=== PATIENT | male | born 1945 | race Caucasian/White ===

== ENCOUNTER 2025-02-22 06:28 | Day surgery (SDC) | payer OTHER ==
[~2025-02-22] VITALS: Ht 162.6 cm; Wt 49.4 kg
[2025-02-22] VITALS (11 sets, daily range): BP systolic 104–121; BP diastolic 60–77; PULSE 60–67; RESP 15–18; TEMP 97.1–97.9
[2025-02-22] MEDS: 0.9%NACL 1000ML 1,000 ML IV ONE (08:35)
[2025-02-22] MEDS ORDERED: ATOR40TA71 PO (08:37)
[2025-02-22] MEDS ORDERED: ESOM40CA66 PO (08:37)
[2025-02-22] MEDS ORDERED: LIDOCAINE HCL 1% 20 ML VIAL ONE (09:14)
--- NOTE | 2025-02-22 10:40 | NUR ---
BOTH PT AND FRIEND GIVEN VERBAL AND WRITTEN DISCHARGE INSTRUCTIONS IV REMOVED SITE ASYMPTOMATIC. PT TAKEN OUT VIA WHEELCHAIR FRIEND DRIVING
== END 2025-02-22 10:35 | disposition home or self-care (01) ==
LOC: DAH 06:28
PROVIDERS: ATTEND Internal Medicine Gastroenterology
DX: R13.10 Dysphagia, unspecified (principal); K22.2 Esophageal obstruction; K31.89 Other diseases of stomach and duodenum; K29.50 Unspecified chronic gastritis without bleeding; K44.9 Diaphragmatic hernia without obstruction or gangrene; R93.3 Abnormal findings on diagnostic imaging of other parts of digestive tract; C67.9 Malignant neoplasm of bladder, unspecified; K22.89 Other specified disease of esophagus; K21.9 Gastro-esophageal reflux disease without esophagitis; Z90.49 Acquired absence of other specified parts of digestive tract; Z98.890 Other specified postprocedural states; Z79.899 Other long term (current) drug therapy
CPT/HCPCS: 43249; 43239; J7030 ×2; J2704; A4620; A4215; A4223; A7002; A4222; A4221; A4663; A4606; C1726; J3490

== ENCOUNTER 2025-02-28 06:47 | Inpatient (IN) | payer OTHER ==
[~2025-02-28] VITALS: Ht 162.6 cm; Wt 46.6 kg
[2025-02-28] VITALS (20 sets, daily range): BP systolic 80–138; BP diastolic 65–96; PULSE 71–89; RESP 13–19; TEMP 97.7–98.4; O2SAT 96
[~2025-02-28 06:47] MED LIST: ATOR40TA71 PO
[2025-02-28] MEDS ORDERED: CYAN-35 PO (10:12)
[2025-02-28] MEDS ORDERED: FERS325 PO (10:12)
[2025-02-28] MEDS: 0.9%NACL 1000ML 1,000 ML IV ONE (10:30)
[2025-02-28] MEDS ORDERED: SUCCINYLCHOLINE CHLORIDE 20 MG/ML 10 ML VIAL ONE (11:29)
[2025-02-28] MEDS ORDERED: LIDOCAINE PF 100MG/5ML (2%) SYRINGE 5ML ONE (11:30)
--- NOTE | 2025-02-28 12:50 | NUR ---
RECEIVED PT IN ROOM 429. PT IS ALERT AND ORIENTED. NO SIGNS OF DISCOMFORT OR DISTRESS. PT WAS ABLE TO ASSIST WITH TRANSFER TO BED. CARE ONGOING.
[2025-02-28] MEDS: cefTRIAXone 1G VIAL 1 GM ONE (12:53)
[2025-02-28] MEDS ORDERED: DOCU100C33 PO (13:13)
[2025-02-28] MEDS: SUCRALFATE 1 GM/10 ML PO ONE (20:01)
[2025-02-28] MEDS: SUCRALFATE 1 GM/10 ML PO SCH (21:19)
[2025-02-28] MEDS: LACTATED RINGERS 1000ML 1,000 ML IV SCH (22:09)
[2025-03-01] VITALS (7 sets, daily range): BP systolic 117–145; BP diastolic 70–86; PULSE 81–93; RESP 16–20; TEMP 97.9–98.6; O2SAT 94–95
--- NOTE | 2025-03-01 01:30 | NUR ---
nurse note patient alert and oriented times 3. plan of care discussed with him and his sister dameon. they verbalized understanding. He has been vomitting everything he swallows including his carafate. His emesis is clear brown/yellow in color. I paged Brendon Daniel np and he ordered zofran and LR at 75 ml/hr. The patient has been trying to sleep and has slept about 3 hours tonight. He calls for assistance to the restroom. He had a large bowel movement (brown) on the toilet last night 02/29/24. Door open, call light within reach, bed alarm on, 2 side rails up. will continue to monitor patient.
[2025-03-01 04:43] LABS: IMMATURE GRANULOCYTE ABSOLUTE 0.04 K/uL (0-1); NUCLEATED RED BLOOD CELLS 0.0 % (0.0-0.19); PLATELET COUNT (AUTO) 225 K/uL (130-400); RED BLOOD CELL COUNT(AUTO) 3.79 MIL/uL (4.50-6.20); RED CELL DISTRIBUTION WIDTH 13.8 % (11.0-15.5); WHITE BLOOD COUNT (AUTO) 9.6 K/uL (4.8-10.8)
[2025-03-01 05:12] LABS: ASPARTATE AMINOTRANSFERASE 29.0 U/L (10-37); CREATININE 1.0 mg/dL (0.5-1.3); GLOMERULAR FILTR. RATE CALC 76.0 mL/min (>90); GLUCOSE,RANDOM 141.0 mg/dL (70-105); SODIUM SERUM 143.0 mmol/L (136-145); TOTAL PROTEIN, SERUM 6.9 g/dL (6.0-8.3); UREA NITROGEN, BLOOD 24.0 mg/dL (7-18)
--- NOTE | 2025-03-01 06:39 | CONS ---
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 One exam, patient is awake, alert, and oriented x 3. No acute distress noted. BBS are clear. Abdomen soft and not distended. Active bs are present. He reports epigastric discomfort and having dry heaves. Denies having any emesis. POC discussed. Will reevaluate in am. He verbalized understanding and agreement. ] Review of Systems: CONSTITUTIONAL: No malaise or change in sensation of wellbeing. ENMT: No rhinorrhea, otorrhea, sinus pain, ear ache. CARDIOVASCULAR: No angina, palpitations, orthopnea or paroxysmal dyspnea. RESPIRATORY: No SOB. GASTROINTESTINAL: No abdominal pain, nausea, vomiting, diarrhea, hematemesis, melena or change in the patient's habitual bowel movements consistency/number. GENITOURINARY: No dysuria, hematuria or change in bladder continence. MUSCULOSKELETAL: No new muscle pain or decrease in muscular strength. No new joint swelling, redness or tenderness. SKIN: No new rash. Past Medical History: [Esophageal stricture, GERD, Hiatal hernia, Salazar's esophagus without dy splasia. ] Past Surgical History: Thumb surgery , Laparoscopy bladder diverticulectomy , Hernia repair 08/16/24] Past Social History: [ ] Family History: [patient denies any family hx of GI malignancy. ] Coded Allergies: No Known Drug Allergies (Unverified Allergy, Unknown, 02/22/25) Physical Exam: GEN: Awake, alert, oriented in person, time and place, and in no acute distress. HEENT: No rhinorrhea. Oral mucosa is pink, moist and within normal limits. CHEST: Lung auscultation revealed normal breath sounds bilaterally. CARDIAC:Heart sounds are regular. ABD: Soft, non-tender and not distended. No peritoneal signs on palpation. Normal bowel sounds. EXT: No cyanosis or clubbing. No edema. SKIN: Intact. No rashes. NEURO: Alert and oriented to name, place and person.No focal motor deficits. Normal speech. Vital Sign (Last 24 Hours) 02/28/25 03/01/25 19:00 03:36 Temp 97.9 Pulse 81 Resp 18 B/P (MAP) 145/86 Pulse Ox 96 O2 Delivery Room Air O2 Flow Rate 0 FiO2 21 Intake & Output (last 24hrs) 02/28/25 02/28/25 03/01/25 15:00 23:00 07:00 Intake Total 900.0 ml Output Total 1850 ml 1000 ml Balance -1850 ml -100.0 ml Laboratory: [ ] Laboratory: Test 03/01/25 04:20 Range/Units White Blood Count 9.6 4.8-10.8 K/uL Red Blood Count 3.79 L 4.50-6.20 MIL/uL Hemoglobin 12.8 L 14.0-18.0 g/dL Hematocrit 38.4 L 42-54 % Mean Corpuscular Volume 101.3 H 79-99 fL Mean Corpuscular Hemoglobin 33.8 H 27.0-33.0 pg Mean Corpuscular Hemoglobin Concent 33.3 32.0-36.0 g/dL Red Cell Distribution Width 13.8 11.0-15.5 % Platelet Count 225 130-400 K/uL Mean Platelet Volume 10.8 H 7.5-10.5 fL Immature Granulocyte % (Auto) 0.4 0-1 % Neutrophils (%) (Auto) 92.3 H 40.0-77.0 % Lymphocytes (%) (Auto) 5.4 L 21.0-51.0 % Monocytes (%) (Auto) 1.8 L 3.0-13.0 % Eosinophils (%) (Auto) 0.0 0.0-8.0 % Basophils (%) (Auto) 0.1 0.0-5.0 % Neutrophils # (Auto) 8.8 H 1.8-7.7 K/uL Lymphocytes # (Auto) 0.5 L 1.0-4.8 K/uL Monocytes # (Auto) 0.2 0.1-1.0 K/uL Eosinophils # (Auto) 0.00 0.00-0.70 K/uL Basophils # (Auto) 0.01 0.00-0.20 K/uL Absolute Immature Granulocyte (auto 0.04 0-1 K/uL Nucleated Red Blood Cells 0.0 0.0-0.19 % White Cell Morphology Comment See comments Sodium Level 143 136-145 mmol/L Potassium Level 3.1 L 3.5-5.1 mmol/L Chloride Level 104 101-111 mmol/L Carbon Dioxide Level 19 L 21-32 mmol/L Blood Urea Nitrogen 24 H 7-18 mg/dL Creatinine 1.0 0.5-1.3 mg/dL Glomerular Filtration Rate Calc 76 >90 mL/min Random Glucose 141 H 70-105 mg/dL Total Calcium 8.8 8.5-10.1 mg/dL Total Bilirubin 0.5 0.2-1.0 mg/dL Aspartate Amino Transf (AST/SGOT) 29 10-37 U/L Alanine Aminotransferase (ALT/SGPT) 28 12-78 U/L Alkaline Phosphatase 58 50-136 U/L Total Protein 6.9 6.0-8.3 g/dL Albumin 3.6 3.5-5.0 g/dL Lipase 13 L 16-77 U/L Current Medications Medications (Trade) Dose Ordered Sig/Dany Route PRN Reason Start Time Stop Time Status Last Admin Dose Admin Lactated Ringer's 1,000 ml @ 75 mls/hr [id number] IV 02/28/25 22:30 03/30/25 22:29 02/28/25 22:09 75 MLS/HR Ondansetron HCl (zoFRAN 4MG INJ) 4 mg Q6H PRN IVP NAUSEA/VOMITING 02/28/25 22:30 03/30/25 22:29 02/28/25 22:09 4 MG Pantoprazole Sodium (PROTonix 40MG INJ) 40 mg DAILY IVP 03/01/25 09:00 03/31/25 08:59 Potassium Chloride 100 ml @ 50 mls/hr PROTOCOL IV 03/01/25 06:30 03/31/25 06:29 03/01/25 06:18 50 MLS/HR Sucralfate (Carafate) 1 gm ACHS PO 02/28/25 21:00 03/30/25 20:59 03/01/25 06:17 1 GM Diagnostics / Radiology: [COPY/PASTE HERE IF NO REPORTS PLEASE DELETE SECTION] Assessment: [Esophageal stricture s/p stent placement GERD Hyperlipidemia ] Plan: [Case discussed with Dr. Jung Full liquid diet today. Advance to soft diet in am Antiemetics prn Please call with questions, concerns and change in clinical status Appreciate hospitalist's assistance in the patient's care. ] DIO RAMSEYP Mar 01, 2025 06:39
--- NOTE | 2025-03-01 07:11 | HMCIMG ---
EXAM: CR Chest, 1 views. CLINICAL HISTORY: Cough. COMPARISON: None provided. FINDINGS: Radio-opaque stent is seen in lower chest likely esophageal stent. the lungs show no infiltrate or other acute findings. No pleural effusion or pneumothorax. The cardiomediastinal silhouette is within normal limits. No acute osseous abnormality. IMPRESSION: No acute cardiopulmonary pathology is evident. Radio-opaque stent is seen in lower chest likely esophageal stent. /[place]
--- NOTE | 2025-03-01 10:58 | NUR ---
DCP:HOME Pt currently lives alone in his home. Pt states that he has a wheelchair at home if he ever needs it but has not used it in close to a year. Pt does not have a provider or home health services. Pt states that he is able to complete ADLs independently. PCP is Dr. Ovidio Deluna ([facility]) and also uses the [facility] for any RX needs. At OR pt will want to go home and friends can assist with transportation. Addendum: 03/01/25 at 1101 by SRIKANTH OQUENDO SS Amended: Links added.
--- NOTE | 2025-03-01 11:00 | PN ---
GASTROENTEROLOGY PROGRESS NOTE Date of Visit: Mar 01, 2025 Time of Visit: 10:57 Events / Notes: [Patient has remained hemodynamically stable and afebrile. WBC of 9.6, hemoglobin 12.8, hematocrit 38.4, platelets 225. Chemistries significant for potassium of 3.1, carbon dioxide of 19, BUN 24, glucose 141, LFTs are normal, lipase 13. Chest x-ray showing no acute cardiopulmonary pathology is evident. Radiopaque stent is seen in the lower chest likely esophageal stent. On exam patient is awake alert and oriented x3, respirations are even and unlabored. He reports having nausea and vomiting today with discomfort in chest. Explained esophageal stent probable cause of symptoms. We will give GI cocktail today and monitor progress. Patient agreed. ] Review of Systems: CONSTITUTIONAL: No malaise or change in sensation of wellbeing. ENMT: No rhinorrhea, otorrhea, sinus pain, ear ache. CARDIOVASCULAR: No angina, palpitations, orthopnea or paroxysmal dyspnea. RESPIRATORY: No SOB. GASTROINTESTINAL: No abdominal pain, nausea, vomiting, diarrhea, hematemesis, melena or change in the patient's habitual bowel movements consistency/number. GENITOURINARY: No dysuria, hematuria or change in bladder continence. MUSCULOSKELETAL: No new muscle pain or decrease in muscular strength. No new joint swelling, redness or tenderness. SKIN: No new rash. Physical Exam: GEN: Awake, alert, oriented in person, time and place, and in no acute distress. HEENT: No rhinorrhea. Oral mucosa is pink, moist and within normal limits. CHEST: Lung auscultation revealed normal breath sounds bilaterally. CARDIAC:Heart sounds are regular. ABD: Soft, non-tender and not distended. No peritoneal signs on palpation. Normal bowel sounds. EXT: No cyanosis or clubbing. No edema. SKIN: Intact. No rashes. NEURO: Alert and oriented to name, place and person.No focal motor deficits. Normal speech. Vital Signs (last 8hr) Date Time Temp Pulse Resp B/P (MAP) Pulse Ox O2 Delivery O2 Flow Rate FiO2 03/01/25 08:00 94 Room Air* 0 21 03/01/25 07:50 98.1 86 19 133/78 94 Room Air 03/01/25 03:36 97.9 81 18 145/86 96 Room Air 21 Laboratory: [ ] Laboratory: Test 03/01/25 04:20 Range/Units White Blood Count 9.6 4.8-10.8 K/uL Red Blood Count 3.79 L 4.50-6.20 MIL/uL Hemoglobin 12.8 L 14.0-18.0 g/dL Hematocrit 38.4 L 42-54 % Mean Corpuscular Volume 101.3 H 79-99 fL Mean Corpuscular Hemoglobin 33.8 H 27.0-33.0 pg Mean Corpuscular Hemoglobin Concent 33.3 32.0-36.0 g/dL Red Cell Distribution Width 13.8 11.0-15.5 % Platelet Count 225 130-400 K/uL Mean Platelet Volume 10.8 H 7.5-10.5 fL Immature Granulocyte % (Auto) 0.4 0-1 % Neutrophils (%) (Auto) 92.3 H 40.0-77.0 % Lymphocytes (%) (Auto) 5.4 L 21.0-51.0 % Monocytes (%) (Auto) 1.8 L 3.0-13.0 % Eosinophils (%) (Auto) 0.0 0.0-8.0 % Basophils (%) (Auto) 0.1 0.0-5.0 % Neutrophils # (Auto) 8.8 H 1.8-7.7 K/uL Lymphocytes # (Auto) 0.5 L 1.0-4.8 K/uL Monocytes # (Auto) 0.2 0.1-1.0 K/uL Eosinophils # (Auto) 0.00 0.00-0.70 K/uL Basophils # (Auto) 0.01 0.00-0.20 K/uL Absolute Immature Granulocyte (auto 0.04 0-1 K/uL Nucleated Red Blood Cells 0.0 0.0-0.19 % White Cell Morphology Comment See comments Sodium Level 143 136-145 mmol/L Potassium Level 3.1 L 3.5-5.1 mmol/L Chloride Level 104 101-111 mmol/L Carbon Dioxide Level 19 L 21-32 mmol/L Blood Urea Nitrogen 24 H 7-18 mg/dL Creatinine 1.0 0.5-1.3 mg/dL Glomerular Filtration Rate Calc 76 >90 mL/min Random Glucose 141 H 70-105 mg/dL Total Calcium 8.8 8.5-10.1 mg/dL Total Bilirubin 0.5 0.2-1.0 mg/dL Aspartate Amino Transf (AST/SGOT) 29 10-37 U/L Alanine Aminotransferase (ALT/SGPT) 28 12-78 U/L Alkaline Phosphatase 58 50-136 U/L Total Protein 6.9 6.0-8.3 g/dL Albumin 3.6 3.5-5.0 g/dL Lipase 13 L 16-77 U/L Current Medications Medications (Trade) Dose Ordered Sig/Dany Route PRN Reason Start Time Stop Time Status Last Admin Dose Admin Lactated Ringer's 1,000 ml @ 75 mls/hr [id number] IV 02/28/25 22:30 03/30/25 22:29 02/28/25 22:09 75 MLS/HR Ondansetron HCl (zoFRAN 4MG INJ) 4 mg Q6H PRN IVP NAUSEA/VOMITING 02/28/25 22:30 03/30/25 22:29 03/01/25 08:37 4 MG Pantoprazole Sodium (PROTonix 40MG INJ) 40 mg DAILY IVP 03/01/25 09:00 03/31/25 08:59 03/01/25 08:37 40 MG Potassium Chloride 100 ml @ 50 mls/hr PROTOCOL IV 03/01/25 06:30 03/31/25 06:29 03/01/25 06:18 50 MLS/HR Sucralfate (Carafate) 1 gm ACHS PO 02/28/25 21:00 03/30/25 20:59 03/01/25 06:17 1 GM Diagnostics / Radiology: [COPY/PASTE HERE IF NO REPORTS PLEASE DELETE SECTION] Assessment: [Esophageal stricture s/p ERCP with stent placement ] Plan: [Case discussed with Dr. Jung Clear to full liquid diet today. Antiemetics prn Please call with questions, concerns and change in clinical status Appreciate hospitalist's assistance in the patient's care. ] DIO RAMSEY Mar 01, 2025 11:00
--- NOTE | 2025-03-01 21:38 | HP ---
[facility] HISTORY AND PHYSICAL Date of Service: Mar 01, 2025 Time of Service: 21:25 HISTORY OF PRESENT ILLNESS: [The patient is an 79-year-old male with a significant history of dysphagia, Salazar's esophagus, GERD, diaphragmatic hernia, and magnet neoplasm of the bladder. He was last evaluated on 02/06 and started on sucralfate for an esophageal high-grade stricture, status post EGD and ERCP with esophageal stent placement. Since the procedure, he has experienced persistent nausea. No reports of vomiting, abdominal pain, or changes in bowel habits. No recent fevers or chills. ] REVIEW OF SYSTEMS CONSTITUTIONAL: Denies fevers, chills, or night sweats. No unintentional weight loss reported. NEUROLOGICAL: Denies headache, amaurosis fugax, motor weakness, sensory deficit, vertigo/spinning sensation, gait abnormalities, or tremors. ENT: No hearing loss, otalgia, otorrhea, rhinitis, rhinorrhea, hoarseness, or sore throat. CARDIOVASCULAR: Denies any exertional angina, dyspnea on exertion, orthopnea, paroxysmal nocturnal dyspnea, palpitations, life-threatening arrhythmias, claudication. PULMONARY: Denies any shortness of breath, cough, phlegm/sputum, hemoptysis, pleuritic chest pain. SLEEP: Denies morning headaches, daytime somnolence or napping. Denies difficulty falling asleep, staying asleep, waking from sleep. Denies knowledge of snoring. GASTROINTESTINAL: Denies any type of dysphagia to either liquids or solids. Denies nausea, vomiting, pyrosis, early satiety, abdominal pain, diarrhea, constipation, or changes in stool consistency or caliber. Denies coffee-ground emesis, hematemesis, hematochezia, or melanotic stools. GENITOURINARY: Denies frequency, urgency, nocturia, hematuria or incontinence (Storage/Irritative symptoms.) Low urinary stream, straining to void, urinary intermittency or hesitancy, splitting of the voiding stream, terminal dribbling. ENDOCRINOLOGIC: Denies polyuria, polydipsia, polyphagia or heat/cold intolerances. HEMATOLOGIC: Denies thrombophilia/previous clots, or coagulopathy/bleeding disorders. ONCOLOGIC: Denies personal history of malignancy. DERMATOLOGIC: Denies rashes or pruritus. PSYCHIATRIC: Denies any suicidal or homicidal ideation. Denies hallucinations. PAST MEDICAL HISTORY: [Dysphagia Salazar's esophagus GERD Diaphragmatic hernia Malignant neoplasm of bladder ] PAST SURGICAL HISTORY: [EGD and ERCP with esophageal stent placement times surgery, laparoscopic bladder diverticulectomy, hernia repair in 08/16/2024 ] PAST SOCIAL HISTORY: [Prior cocaine use now abstinent, denies tobacco, illicit drug use ] FAMILY HISTORY: [Patient denies any family history of GI malignancy ] Coded Allergies: No Known Drug Allergies (Unverified Allergy, Unknown, 02/22/25) PHYSICAL EXAM GENERAL APPEARANCE: The patient is awake, alert, and oriented, in no acute cardiopulmonary distress. NEUROLOGICAL: Cranial nerves II-XII grossly intact. Motor is 5/5 in bilateral upper and lower extremities proximal to distal. No sensory deficits. HEENT: Face is symmetric. Pupils are equal and reactive. Extraocular movements are intact. NECK: Supple. No JVD. No thyromegaly. No submental, submandibular, pre-/postauricular, occipital or supraclavicular lymphadenopathy. CHEST: Normal chest expansion. No Telemetry. LUNGS: Absence of any rales, rhonchi or any wheezing. CARDIOVASCULAR: Regular. S1 and S2 normal. No appreciable rubs, murmurs or gallops. ABDOMEN: Soft, nontender, and nondistended. There is no rebound, voluntary guarding, or rigidity. : Deferred. No Elizalde. EXTREMITIES: Non-edematous and not cyanotic. No clubbing. Good capillary refill. SKIN: No skin breakdown. Vital Sign (Last 24 Hours) 03/01/25 03/01/25 08:00 20:00 Temp 98.6 Pulse 81 Resp 20 B/P (MAP) 126/70 Pulse Ox 96 O2 Delivery Room Air O2 Flow Rate 0 FiO2 21 Intake & Output (last 24hrs) 02/28/25 02/28/25 03/01/25 15:00 23:00 07:00 Intake Total 900.0 ml Output Total 1850 ml 1000 ml Balance -1850 ml -100.0 ml LABS: Laboratory: Test 03/01/25 04:20 Range/Units White Blood Count 9.6 4.8-10.8 K/uL Red Blood Count 3.79 L 4.50-6.20 MIL/uL Hemoglobin 12.8 L 14.0-18.0 g/dL Hematocrit 38.4 L 42-54 % Mean Corpuscular Volume 101.3 H 79-99 fL Mean Corpuscular Hemoglobin 33.8 H 27.0-33.0 pg Mean Corpuscular Hemoglobin Concent 33.3 32.0-36.0 g/dL Red Cell Distribution Width 13.8 11.0-15.5 % Platelet Count 225 130-400 K/uL Mean Platelet Volume 10.8 H 7.5-10.5 fL Immature Granulocyte % (Auto) 0.4 0-1 % Neutrophils (%) (Auto) 92.3 H 40.0-77.0 % Lymphocytes (%) (Auto) 5.4 L 21.0-51.0 % Monocytes (%) (Auto) 1.8 L 3.0-13.0 % Eosinophils (%) (Auto) 0.0 0.0-8.0 % Basophils (%) (Auto) 0.1 0.0-5.0 % Neutrophils # (Auto) 8.8 H 1.8-7.7 K/uL Lymphocytes # (Auto) 0.5 L 1.0-4.8 K/uL Monocytes # (Auto) 0.2 0.1-1.0 K/uL Eosinophils # (Auto) 0.00 0.00-0.70 K/uL Basophils # (Auto) 0.01 0.00-0.20 K/uL Absolute Immature Granulocyte (auto 0.04 0-1 K/uL Nucleated Red Blood Cells 0.0 0.0-0.19 % White Cell Morphology Comment See comments Sodium Level 143 136-145 mmol/L Potassium Level 3.1 L 3.5-5.1 mmol/L Chloride Level 104 101-111 mmol/L Carbon Dioxide Level 19 L 21-32 mmol/L Blood Urea Nitrogen 24 H 7-18 mg/dL Creatinine 1.0 0.5-1.3 mg/dL Glomerular Filtration Rate Calc 76 >90 mL/min Random Glucose 141 H 70-105 mg/dL Total Calcium 8.8 8.5-10.1 mg/dL Total Bilirubin 0.5 0.2-1.0 mg/dL Aspartate Amino Transf (AST/SGOT) 29 10-37 U/L Alanine Aminotransferase (ALT/SGPT) 28 12-78 U/L Alkaline Phosphatase 58 50-136 U/L Total Protein 6.9 6.0-8.3 g/dL Albumin 3.6 3.5-5.0 g/dL Lipase 13 L 16-77 U/L Current Medications Medications (Trade) Dose Ordered Sig/Dany Route PRN Reason Start Time Stop Time Status Last Admin Dose Admin Lactated Ringer's 1,000 ml @ 75 mls/hr [id number] IV 02/28/25 22:30 03/30/25 22:29 02/28/25 22:09 75 MLS/HR Ondansetron HCl (zoFRAN 4MG INJ) 4 mg Q6H PRN IVP NAUSEA/VOMITING 02/28/25 22:30 03/30/25 22:29 03/01/25 16:42 4 MG Pantoprazole Sodium (PROTonix 40MG INJ) 40 mg DAILY IVP 03/01/25 09:00 03/31/25 08:59 03/01/25 08:37 40 MG Potassium Chloride 100 ml @ 50 mls/hr PROTOCOL IV 03/01/25 06:30 03/31/25 06:29 03/01/25 06:18 50 MLS/HR Sucralfate (Carafate) 1 gm ACHS PO 02/28/25 21:00 03/30/25 20:59 03/01/25 16:42 1 GM DIAGNOSTICS / RADIOLOGY: [ ] ASSESSMENT: [79-year-old male, status post EGD/ERCP with esophageal stent placement for high-grade esophageal stricture. Persistent nausea following procedure, currently hemodynamically stable. No acute abdominal pain or evidence of complication at this time. ] Post-procedural nausea and vomiting Esophageal stricture, high-grade status post EGD/ERCP with esophageal stent placement. Post-procedural nausea persistent, requiring NPO. Hypokalemia (K 3.1 mmol/L) likely due to poor PO intake and nausea. Metabolic acidosis (CO2-19 mmol/L) mild, monitor for progression. Azotemia (BUN 24 mg/dL) possibly pre-renal from decreased PO intake. Mild hyperglycemia (Glucose 141 mg/dL) monitor. Stable hematology (Hgb 12.8 g/dL, Hct 38.4%) no acute anemia. Normal lipase (13 U/L) no evidence of acute pancreatitis. PLAN: [Diet/Nutrition: Continue NPO until nausea improves; reassess daily. Fluids: Maintain IV fluids (consider NS or LR with electrolyte monitoring). Electrolyte Replacement: Replace Potassium to correct hypokalemia (IV KCl since NPO; recheck BMP after replacement). Monitor CO2 and acid-base status; repeat BMP in AM. Antiemetics: Ondansetron IV PRN for nausea. Monitoring: Vitals q4h, Strict intake/output Daily BMP, CBC while inpatient Assess for signs of stent complications (pain, vomiting blood, worsening dysphagia). Consults: GI service follow-up for stent care and nausea management recommend ations. Patient/Family Education: Updated regarding lab findings, need for potassium replacement, and supportive management. 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 Which of the following were discussed? Hospice Care - Yes / No Therapeutic options - Yes / No Advance Directives - Yes / No Other discussions - 2. Discussed with who? Patient 3. Voluntary nature of this service was explained to the patient? Yes / No 4. Amount of time spent - _21 mins 5. Reviewed by Physician? (if this service was performed by NPP) Yes / No ] ATTESTATION BY PHYSICIAN I have seen and examined the patient. I reviewed the documentation, medical decision making, and treatment plan as noted by the mid-level provider above. I agree with the findings and plan of care. Blanca Smallwood MD, [facility] Mar 01, 2025 21:38
[2025-03-02] VITALS (7 sets, daily range): BP systolic 122–146; BP diastolic 81–88; PULSE 78–84; RESP 18; TEMP 97.7–98.8; O2SAT 95
[2025-03-02 04:40] LABS: NUCLEATED RED BLOOD CELLS 0.0 % (0.0-0.19); PLATELET COUNT (AUTO) 201.0 K/uL (130-400); RED BLOOD CELL COUNT(AUTO) 3.51 MIL/uL (4.50-6.20); RED CELL DISTRIBUTION WIDTH 14.1 % (11.0-15.5); WHITE BLOOD COUNT (AUTO) 8.8 K/uL (4.8-10.8)
[2025-03-02 04:54] LABS: CREATININE 0.8 mg/dL (0.5-1.3); GLOMERULAR FILTR. RATE CALC 89.0 mL/min (>90); GLUCOSE,RANDOM 115.0 mg/dL (70-105); SODIUM SERUM 139.0 mmol/L (136-145); UREA NITROGEN, BLOOD 19.0 mg/dL (7-18)
--- NOTE | 2025-03-02 15:16 | PN ---
[facility] PROGRESS NOTE Date of Service: Mar 02, 2025 Time of Service: 15:14 SUBJECTIVE: [The patient was examined today. He reports no new complaints. No nausea, vomiting, or abdominal pain. ] REVIEW OF SYSTEMS CONSTITUTIONAL: Denies fevers, chills, or night sweats. No unintentional weight loss reported. NEUROLOGICAL: Denies headache, amaurosis fugax, motor weakness, sensory deficit, vertigo/spinning sensation, gait abnormalities, or tremors. ENT: No hearing loss, otalgia, otorrhea, rhinitis, rhinorrhea, hoarseness, or sore throat. CARDIOVASCULAR: Denies any exertional angina, dyspnea on exertion, orthopnea, paroxysmal nocturnal dyspnea, palpitations, life-threatening arrhythmias, claudication. PULMONARY: Denies any shortness of breath, cough, phlegm/sputum, hemoptysis, pleuritic chest pain. SLEEP: Denies morning headaches, daytime somnolence or napping. Denies difficulty falling asleep, staying asleep, waking from sleep. Denies knowledge of snoring. GASTROINTESTINAL: Denies any type of dysphagia to either liquids or solids. Denies nausea, vomiting, pyrosis, early satiety, abdominal pain, diarrhea, constipation, or changes in stool consistency or caliber. Denies coffee-ground emesis, hematemesis, hematochezia, or melanotic stools. GENITOURINARY: Denies frequency, urgency, nocturia, hematuria or incontinence (Storage/Irritative symptoms.) Low urinary stream, straining to void, urinary intermittency or hesitancy, splitting of the voiding stream, terminal dribbling. ENDOCRINOLOGIC: Denies polyuria, polydipsia, polyphagia or heat/cold intolerances. HEMATOLOGIC: Denies thrombophilia/previous clots, or coagulopathy/bleeding disorders. ONCOLOGIC: Denies personal history of malignancy. DERMATOLOGIC: Denies rashes or pruritus. PSYCHIATRIC: Denies any suicidal or homicidal ideation. Denies hallucinations. PHYSICAL EXAM GENERAL APPEARANCE: The patient is awake, alert, and oriented, in no acute cardiopulmonary distress. NEUROLOGICAL: Cranial nerves II-XII grossly intact. Motor is 5/5 in bilateral upper and lower extremities proximal to distal. No sensory deficits. HEENT: Face is symmetric. Pupils are equal and reactive. Extraocular movements are intact. NECK: Supple. No JVD. No thyromegaly. No submental, submandibular, pre- /postauricular, occipital or supraclavicular lymphadenopathy. CHEST: Normal chest expansion. No Telemetry. LUNGS: Absence of any rales, rhonchi or any wheezing. CARDIOVASCULAR: Regular. S1 and S2 normal. No appreciable rubs, murmurs or gallops. ABDOMEN: Soft, nontender, and nondistended. There is no rebound, voluntary guarding, or rigidity. : Deferred. No Elizalde. EXTREMITIES: Non-edematous and not cyanotic. No clubbing. Good capillary refill. SKIN: No skin breakdown. Vital Signs (last 8hr) Date Time Temp Pulse Resp B/P (MAP) Pulse Ox O2 Delivery O2 Flow Rate FiO2 03/02/25 11:55 97.9 78 18 146/86 93 Room Air 03/02/25 11:18 95 Room Air* 0 21 03/02/25 07:57 97.9 83 18 144/85 93 Room Air LABS: Laboratory: Test 03/02/25 04:08 03/01/25 04:20 Range/Units White Blood Count 8.8 4.8-10.8 K/uL Red Blood Count 3.51 L 4.50-6.20 MIL/uL Hemoglobin 11.9 L 14.0-18.0 g/dL Hematocrit 35.3 L 42-54 % Mean Corpuscular Volume 100.6 H 79-99 fL Mean Corpuscular Hemoglobin 33.9 H 27.0-33.0 pg Mean Corpuscular Hemoglobin Concent 33.7 32.0-36.0 g/dL Red Cell Distribution Width 14.1 11.0-15.5 % Platelet Count 201 130-400 K/uL Mean Platelet Volume 11.1 H 7.5-10.5 fL Nucleated Red Blood Cells 0.0 0.0-0.19 % Sodium Level 139 136-145 mmol/L Potassium Level 3.2 L 3.5-5.1 mmol/L Chloride Level 100 L 101-111 mmol/L Carbon Dioxide Level 24 21-32 mmol/L Blood Urea Nitrogen 19 H 7-18 mg/dL Creatinine 0.8 0.5-1.3 mg/dL Glomerular Filtration Rate Calc 89 >90 mL/min Random Glucose 115 H 70-105 mg/dL Total Calcium 8.2 L 8.5-10.1 mg/dL Immature Granulocyte % (Auto) 0.4 0-1 % Neutrophils (%) (Auto) 92.3 H 40.0-77.0 % Lymphocytes (%) (Auto) 5.4 L 21.0-51.0 % Monocytes (%) (Auto) 1.8 L 3.0-13.0 % Eosinophils (%) (Auto) 0.0 0.0-8.0 % Basophils (%) (Auto) 0.1 0.0-5.0 % Neutrophils # (Auto) 8.8 H 1.8-7.7 K/uL Lymphocytes # (Auto) 0.5 L 1.0-4.8 K/uL Monocytes # (Auto) 0.2 0.1-1.0 K/uL Eosinophils # (Auto) 0.00 0.00-0.70 K/uL Basophils # (Auto) 0.01 0.00-0.20 K/uL Absolute Immature Granulocyte (auto 0.04 0-1 K/uL White Cell Morphology Comment See comments Total Bilirubin 0.5 0.2-1.0 mg/dL Aspartate Amino Transf (AST/SGOT) 29 10-37 U/L Alanine Aminotransferase (ALT/SGPT) 28 12-78 U/L Alkaline Phosphatase 58 50-136 U/L Total Protein 6.9 6.0-8.3 g/dL Albumin 3.6 3.5-5.0 g/dL Lipase 13 L 16-77 U/L Current Medications Medications (Trade) Dose Ordered Sig/Dany Route PRN Reason Start Time Stop Time Status Last Admin Dose Admin Lactated Ringer's 1,000 ml @ 75 mls/hr [id number] IV 02/28/25 22:30 03/30/25 22:29 03/02/25 14:41 75 MLS/HR Ondansetron HCl (zoFRAN 4MG INJ) 4 mg Q6H PRN IVP NAUSEA/VOMITING 02/28/25 22:30 03/30/25 22:29 03/02/25 13:48 4 MG Pantoprazole Sodium (PROTonix 40MG INJ) 40 mg DAILY IVP 03/01/25 09:00 03/31/25 08:59 03/02/25 09:23 40 MG Potassium Chloride 100 ml @ 50 mls/hr PROTOCOL IV 03/01/25 06:30 03/31/25 06:29 03/02/25 05:05 50 MLS/HR Sucralfate (Carafate) 1 gm ACHS PO 02/28/25 21:00 03/30/25 20:59 03/02/25 11:57 1 GM DIAGNOSTICS / RADIOLOGY: [ ] ASSESSMENT: [79-year-old male, status post EGD/ERCP with esophageal stent placement for high-grade esophageal stricture. Persistent nausea following procedure, currently hemodynamically stable. No acute abdominal pain or evidence of complication at this time. ] Post-procedural nausea and vomiting Esophageal stricture, high-grade status post EGD/ERCP with esophageal stent placement. Post-procedural nausea persistent, requiring NPO. Hypokalemia (K 3.2 mmol/L) likely due to poor PO intake and nausea. Metabolic acidosis (CO2-19 mmol/L) mild, monitor for progression. Azotemia (BUN 24 mg/dL) possibly pre-renal from decreased PO intake. Mild hyperglycemia (Glucose 141 mg/dL) monitor. Stable hematology (Hgb 12.8 g/dL, Hct 38.4%) no acute anemia. Normal lipase (13 U/L) no evidence of acute pancreatitis. PLAN: [Diet advanced to full per GI team; will advance to soft diet in the morning per GI recommendations Continue to monitor clinical status and tolerance of diet Replete potassium as indicated Continue supportive care No other acute issues at this time Will continue to follow Patient seen and examined in room Raj with Dr. Cortes, above plan was formulated ATTESTATION BY PHYSICIAN I have seen and examined the patient. I reviewed the documentation, medical decision making, and treatment plan as noted by the mid-level provider above. I agree with the findings and plan of care. Blanca Smallwood MD, [facility] Mar 02, 2025 15:16
--- NOTE | 2025-03-02 15:23 | PN ---
GASTROENTEROLOGY PROGRESS NOTE Date of Visit: Mar 02, 2025 Time of Visit: 15:50 Events / Notes: [Patient has remained hemodynamically stable and afebrile. WBC of 9.6, hemoglobin 12.8, hematocrit 38.4, platelets 225. Chemistries significant for potassium of 3.1, carbon dioxide of 19, BUN 24, glucose 141, LFTs are normal, lipase 13. Chest x-ray showing no acute cardiopulmonary pathology is evident. Radiopaque stent is seen in the lower chest likely esophageal stent. On exam patient is awake alert and oriented x3, respirations are even and unlabored. He reports having nausea and vomiting today with discomfort in chest. Explained esophageal stent probable cause of symptoms. We will give GI cocktail today and monitor progress. Patient agreed. 03/02/25: No acute events overnight. Patient's vital signs have remained stable. Patient has not had any emesis today. He reports he has tolerated clear fluids but is afraid of eating solid foods. He states he continues to have nausea with or without food. Will attempt pureed foods. Patient agreed. ] Review of Systems: CONSTITUTIONAL: No malaise or change in sensation of wellbeing. ENMT: No rhinorrhea, otorrhea, sinus pain, ear ache. CARDIOVASCULAR: No angina, palpitations, orthopnea or paroxysmal dyspnea. RESPIRATORY: No SOB. GASTROINTESTINAL: No abdominal pain, nausea, vomiting, diarrhea, hematemesis, melena or change in the patient's habitual bowel movements consistency/number. GENITOURINARY: No dysuria, hematuria or change in bladder continence. MUSCULOSKELETAL: No new muscle pain or decrease in muscular strength. No new joint swelling, redness or tenderness. SKIN: No new rash. Physical Exam: GEN: Awake, alert, oriented in person, time and place, and in no acute distress. HEENT: No rhinorrhea. Oral mucosa is pink, moist and within normal limits. CHEST: Lung auscultation revealed normal breath sounds bilaterally. CARDIAC:Heart sounds are regular. ABD: Soft, non-tender and not distended. No peritoneal signs on palpation. Normal bowel sounds. EXT: No cyanosis or clubbing. No edema. SKIN: Intact. No rashes. NEURO: Alert and oriented to name, place and person.No focal motor deficits. Normal speech. Vital Signs (last 8hr) Date Time Temp Pulse Resp B/P (MAP) Pulse Ox O2 Delivery O2 Flow Rate FiO2 03/02/25 11:55 97.9 78 18 146/86 93 Room Air 03/02/25 11:18 95 Room Air* 0 21 03/02/25 07:57 97.9 83 18 144/85 93 Room Air Laboratory: [ ] Laboratory: Test 03/02/25 04:08 03/01/25 04:20 Range/Units White Blood Count 8.8 4.8-10.8 K/uL Red Blood Count 3.51 L 4.50-6.20 MIL/uL Hemoglobin 11.9 L 14.0-18.0 g/dL Hematocrit 35.3 L 42-54 % Mean Corpuscular Volume 100.6 H 79-99 fL Mean Corpuscular Hemoglobin 33.9 H 27.0-33.0 pg Mean Corpuscular Hemoglobin Concent 33.7 32.0-36.0 g/dL Red Cell Distribution Width 14.1 11.0-15.5 % Platelet Count 201 130-400 K/uL Mean Platelet Volume 11.1 H 7.5-10.5 fL Nucleated Red Blood Cells 0.0 0.0-0.19 % Sodium Level 139 136-145 mmol/L Potassium Level 3.2 L 3.5-5.1 mmol/L Chloride Level 100 L 101-111 mmol/L Carbon Dioxide Level 24 21-32 mmol/L Blood Urea Nitrogen 19 H 7-18 mg/dL Creatinine 0.8 0.5-1.3 mg/dL Glomerular Filtration Rate Calc 89 >90 mL/min Random Glucose 115 H 70-105 mg/dL Total Calcium 8.2 L 8.5-10.1 mg/dL Immature Granulocyte % (Auto) 0.4 0-1 % Neutrophils (%) (Auto) 92.3 H 40.0-77.0 % Lymphocytes (%) (Auto) 5.4 L 21.0-51.0 % Monocytes (%) (Auto) 1.8 L 3.0-13.0 % Eosinophils (%) (Auto) 0.0 0.0-8.0 % Basophils (%) (Auto) 0.1 0.0-5.0 % Neutrophils # (Auto) 8.8 H 1.8-7.7 K/uL Lymphocytes # (Auto) 0.5 L 1.0-4.8 K/uL Monocytes # (Auto) 0.2 0.1-1.0 K/uL Eosinophils # (Auto) 0.00 0.00-0.70 K/uL Basophils # (Auto) 0.01 0.00-0.20 K/uL Absolute Immature Granulocyte (auto 0.04 0-1 K/uL White Cell Morphology Comment See comments Total Bilirubin 0.5 0.2-1.0 mg/dL Aspartate Amino Transf (AST/SGOT) 29 10-37 U/L Alanine Aminotransferase (ALT/SGPT) 28 12-78 U/L Alkaline Phosphatase 58 50-136 U/L Total Protein 6.9 6.0-8.3 g/dL Albumin 3.6 3.5-5.0 g/dL Lipase 13 L 16-77 U/L Current Medications Medications (Trade) Dose Ordered Sig/Dany Route PRN Reason Start Time Stop Time Status Last Admin Dose Admin Lactated Ringer's 1,000 ml @ 75 mls/hr [id number] IV 02/28/25 22:30 03/30/25 22:29 03/02/25 14:41 75 MLS/HR Ondansetron HCl (zoFRAN 4MG INJ) 4 mg Q6H PRN IVP NAUSEA/VOMITING 02/28/25 22:30 03/30/25 22:29 03/02/25 13:48 4 MG Pantoprazole Sodium (PROTonix 40MG INJ) 40 mg DAILY IVP 03/01/25 09:00 03/31/25 08:59 03/02/25 09:23 40 MG Potassium Chloride 100 ml @ 50 mls/hr PROTOCOL IV 03/01/25 06:30 03/31/25 06:29 03/02/25 05:05 50 MLS/HR Sucralfate (Carafate) 1 gm ACHS PO 02/28/25 21:00 03/30/25 20:59 03/02/25 11:57 1 GM Diagnostics / Radiology: [COPY/PASTE HERE IF NO REPORTS PLEASE DELETE SECTION] Assessment: [Esophageal stricture s/p ERCP with stent placement GERD Hyperlipidemia ] Plan: [Case discussed with Dr. Jung Pureed diet Reglan 10mg IV tid Antiemetics prn Plan for disposition once patient is tolerates pureed foods. Patient is to keep follow-up appointment at [facility] in one week Please call with questions, concerns and change in clinical status Appreciate hospitalist's assistance in the patient's care. ] DIO RAMSEY Mar 02, 2025 15:23
--- NOTE | 2025-03-02 16:47 | HMCIMG ---
Intraoperative fluoroscopic assessment of the esophagus INDICATION: Esophageal stenosis COMPARISON: None available Fluoroscopy time: 1 minute 22 seconds. FINDINGS: 5 images demonstrate patient undergoing esophageal stent placement under fluoroscopy IMPRESSION: Details of the finding in the procedural note.
[2025-03-03] VITALS (8 sets, daily range): BP systolic 98–150; BP diastolic 68–94; PULSE 63–85; RESP 17–18; TEMP 97.6–98.5; O2SAT 93–96
--- NOTE | 2025-03-03 12:40 | PN ---
[facility] PROGRESS NOTE Date of Service: Mar 03, 2025 Time of Service: 12:39 SUBJECTIVE: The patient was examined today. He reports no new complaints. No nausea, vomiting, or abdominal pain. 03/03 patient continues with nausea he is concerned about advancing diet. He reports weakness overall REVIEW OF SYSTEMS CONSTITUTIONAL: Denies fevers, chills, or night sweats. No unintentional weight loss reported. NEUROLOGICAL: Denies headache, amaurosis fugax, motor weakness, sensory deficit, vertigo/spinning sensation, gait abnormalities, or tremors. ENT: No hearing loss, otalgia, otorrhea, rhinitis, rhinorrhea, hoarseness, or sore throat. CARDIOVASCULAR: Denies any exertional angina, dyspnea on exertion, orthopnea, paroxysmal nocturnal dyspnea, palpitations, life-threatening arrhythmias, claudication. PULMONARY: Denies any shortness of breath, cough, phlegm/sputum, hemoptysis, pleuritic chest pain. SLEEP: Denies morning headaches, daytime somnolence or napping. Denies diffi culty falling asleep, staying asleep, waking from sleep. Denies knowledge of snoring. GASTROINTESTINAL: Denies any type of dysphagia to either liquids or solids. Denies nausea, vomiting, pyrosis, early satiety, abdominal pain, diarrhea, constipation, or changes in stool consistency or caliber. Denies coffee-ground emesis, hematemesis, hematochezia, or melanotic stools. GENITOURINARY: Denies frequency, urgency, nocturia, hematuria or incontinence (Storage/Irritative symptoms.) Low urinary stream, straining to void, urinary intermittency or hesitancy, splitting of the voiding stream, terminal dribbling. ENDOCRINOLOGIC: Denies polyuria, polydipsia, polyphagia or heat/cold int olerances. HEMATOLOGIC: Denies thrombophilia/previous clots, or coagulopathy/bleeding disorders. ONCOLOGIC: Denies personal history of malignancy. DERMATOLOGIC: Denies rashes or pruritus. PSYCHIATRIC: Denies any suicidal or homicidal ideation. Denies hallucinations. PHYSICAL EXAM GENERAL APPEARANCE: The patient is awake, alert, and oriented, in no acute cardiopulmonary distress. NEUROLOGICAL: Cranial nerves II-XII grossly intact. Motor is 5/5 in bilateral upper and lower extremities proximal to distal. No sensory deficits. HEENT: Face is symmetric. Pupils are equal and reactive. Extraocular movements are intact. NECK: Supple. No JVD. No thyromegaly. No submental, submandibular, pre- /postauricular, occipital or supraclavicular lymphadenopathy. CHEST: Normal chest expansion. No Telemetry. LUNGS: Absence of any rales, rhonchi or any wheezing. CARDIOVASCULAR: Regular. S1 and S2 normal. No appreciable rubs, murmurs or gallops. ABDOMEN: Soft, nontender, and nondistended. There is no rebound, voluntary guarding, or rigidity. : Deferred. No Elizalde. EXTREMITIES: Non-edematous and not cyanotic. No clubbing. Good capillary refill. SKIN: No skin breakdown. Vital Signs (last 8hr) Date Time Temp Pulse Resp B/P (MAP) Pulse Ox O2 Delivery O2 Flow Rate FiO2 03/03/25 09:09 96 Room Air* 0 21 03/03/25 08:00 97.5 75 18 98/68 99 Room Air LABS: Laboratory: Test 03/02/25 04:08 Range/Units White Blood Count 8.8 4.8-10.8 K/uL Red Blood Count 3.51 L 4.50-6.20 MIL/uL Hemoglobin 11.9 L 14.0-18.0 g/dL Hematocrit 35.3 L 42-54 % Mean Corpuscular Volume 100.6 H 79-99 fL Mean Corpuscular Hemoglobin 33.9 H 27.0-33.0 pg Mean Corpuscular Hemoglobin Concent 33.7 32.0-36.0 g/dL Red Cell Distribution Width 14.1 11.0-15.5 % Platelet Count 201 130-400 K/uL Mean Platelet Volume 11.1 H 7.5-10.5 fL Nucleated Red Blood Cells 0.0 0.0-0.19 % Sodium Level 139 136-145 mmol/L Potassium Level 3.2 L 3.5-5.1 mmol/L Chloride Level 100 L 101-111 mmol/L Carbon Dioxide Level 24 21-32 mmol/L Blood Urea Nitrogen 19 H 7-18 mg/dL Creatinine 0.8 0.5-1.3 mg/dL Glomerular Filtration Rate Calc 89 >90 mL/min Random Glucose 115 H 70-105 mg/dL Total Calcium 8.2 L 8.5-10.1 mg/dL Current Medications Medications (Trade) Dose Ordered Sig/Dany Route PRN Reason Start Time Stop Time Status Last Admin Dose Admin Lactated Ringer's 1,000 ml @ 75 mls/hr [id number] IV 02/28/25 22:30 03/30/25 22:29 03/02/25 14:41 75 MLS/HR Metoclopramide HCl (regLAN 10MG IV) 10 mg TIDAC IVP 03/02/25 17:00 04/01/25 16:59 03/03/25 11:42 10 MG Ondansetron HCl (zoFRAN 4MG INJ) 4 mg Q6H PRN IVP NAUSEA/VOMITING 02/28/25 22:30 03/30/25 22:29 03/02/25 13:48 4 MG Pantoprazole Sodium (PROTonix 40MG INJ) 40 mg DAILY IVP 03/01/25 09:00 03/31/25 08:59 03/03/25 09:19 40 MG Potassium Chloride 100 ml @ 50 mls/hr PROTOCOL IV 03/01/25 06:30 03/31/25 06:29 03/02/25 05:05 50 MLS/HR Sucralfate (Carafate) 1 gm ACHS PO 02/28/25 21:00 03/30/25 20:59 03/03/25 11:42 1 GM DIAGNOSTICS / RADIOLOGY: [ ] ASSESSMENT: [79-year-old male, status post EGD/ERCP with esophageal stent placement for high-grade esophageal stricture. Persistent nausea following procedure, currently hemodynamically stable. No acute abdominal pain or evidence of compli cation at this time. ] Post-procedural nausea and vomiting Esophageal stricture, high-grade status post EGD/ERCP with esophageal stent placement. Post-procedural nausea persistent, requiring NPO. Hypokalemia (K 3.2 mmol/L) likely due to poor PO intake and nausea. Metabolic acidosis (CO2-19 mmol/L) mild, monitor for progression. Azotemia (BUN 24 mg/dL) possibly pre-renal from decreased PO intake. Mild hyperglycemia (Glucose 141 mg/dL) monitor. Stable hematology (Hgb 12.8 g/dL, Hct 38.4%) no acute anemia. Normal lipase (13 U/L) no evidence of acute pancreatitis. PLAN: Monitor off antibiotics for signs of infection Trend WBCs Follow-up cultures O2 nasal cannula as needed Monitor blood pressure Advance diet as tolerated as per GI GI prophylaxis with pantoprazole and sucralfate Continue Reglan, docusate Discontinue LR Trend a.m. BMP Replete electrolytes as necessary DVT prophylaxis with Lovenox Trend a.m. CBC Full code Case was discussed with patient's nurse at bedside Attention time greater than 30 minutes GENIA MORATAYA IV, MD Mar 03, 2025 12:40
--- NOTE | 2025-03-03 13:03 | NUR ---
Mr Kim has been updating his sister Padilla Cherry , on his status. She wanted to be be updated on his status by a physician. This greeting card writer voiced to her that he would make an effort to relay this message to the medical team.
--- NOTE | 2025-03-03 18:15 | PN ---
GASTROENTEROLOGY PROGRESS NOTE Date of Visit: Mar 03, 2025 Time of Visit: 18:14 Events / Notes: [Patient has remained hemodynamically stable and afebrile. WBC of 9.6, hemoglobin 12.8, hematocrit 38.4, platelets 225. Chemistries significant for potassium of 3.1, carbon dioxide of 19, BUN 24, glucose 141, LFTs are normal, lipase 13. Chest x-ray showing no acute cardiopulmonary pathology is evident. Radiopaque stent is seen in the lower chest likely esophageal stent. On exam patient is awake alert and oriented x3, respirations are even and unlabored. He reports having nausea and vomiting today with discomfort in chest. Explained esophageal stent probable cause of symptoms. We will give GI cocktail today and monitor progress. Patient agreed. 03/02/25: No acute events overnight. Patient's vital signs have remained stable. Patient has not had any emesis today. He reports he has tolerated clear fluids but is afraid of eating solid foods. He states he continues to have nausea with or without food. Will attempt pureed foods. Patient agreed. 03/03/25: Patient has tolerated pureed foods. No nausea or vomiting reported. Vital signs have been stable.] Review of Systems: CONSTITUTIONAL: No malaise or change in sensation of wellbeing. ENMT: No rhinorrhea, otorrhea, sinus pain, ear ache. CARDIOVASCULAR: No angina, palpitations, orthopnea or paroxysmal dyspnea. RESPIRATORY: No SOB. GASTROINTESTINAL: No abdominal pain, nausea, vomiting, diarrhea, hematemesis, melena or change in the patient's habitual bowel movements consistency/number. GENITOURINARY: No dysuria, hematuria or change in bladder continence. MUSCULOSKELETAL: No new muscle pain or decrease in muscular strength. No new joint swelling, redness or tenderness. SKIN: No new rash. Physical Exam: GEN: Awake, alert, oriented in person, time and place, and in no acute distress. HEENT: No rhinorrhea. Oral mucosa is pink, moist and within normal limits. CHEST: Lung auscultation revealed normal breath sounds bilaterally. CARDIAC:Heart sounds are regular. ABD: Soft, non-tender and not distended. No peritoneal signs on palpation. Normal bowel sounds. EXT: No cyanosis or clubbing. No edema. SKIN: Intact. No rashes. NEURO: Alert and oriented to name, place and person.No focal motor deficits. Normal speech. Vital Signs (last 8hr) Date Time Temp Pulse Resp B/P (MAP) Pulse Ox O2 Delivery O2 Flow Rate FiO2 03/03/25 16:00 98.1 79 18 127/90 98 Room Air 03/03/25 12:00 97.9 76 18 110/68 98 Room Air Laboratory: [ ] Laboratory: Test 03/02/25 04:08 Range/Units White Blood Count 8.8 4.8-10.8 K/uL Red Blood Count 3.51 L 4.50-6.20 MIL/uL Hemoglobin 11.9 L 14.0-18.0 g/dL Hematocrit 35.3 L 42-54 % Mean Corpuscular Volume 100.6 H 79-99 fL Mean Corpuscular Hemoglobin 33.9 H 27.0-33.0 pg Mean Corpuscular Hemoglobin Concent 33.7 32.0-36.0 g/dL Red Cell Distribution Width 14.1 11.0-15.5 % Platelet Count 201 130-400 K/uL Mean Platelet Volume 11.1 H 7.5-10.5 fL Nucleated Red Blood Cells 0.0 0.0-0.19 % Sodium Level 139 136-145 mmol/L Potassium Level 3.2 L 3.5-5.1 mmol/L Chloride Level 100 L 101-111 mmol/L Carbon Dioxide Level 24 21-32 mmol/L Blood Urea Nitrogen 19 H 7-18 mg/dL Creatinine 0.8 0.5-1.3 mg/dL Glomerular Filtration Rate Calc 89 >90 mL/min Random Glucose 115 H 70-105 mg/dL Total Calcium 8.2 L 8.5-10.1 mg/dL Current Medications Medications (Trade) Dose Ordered Sig/Dany Route PRN Reason Start Time Stop Time Status Last Admin Dose Admin Lactated Ringer's 1,000 ml @ 75 mls/hr [id number] IV 02/28/25 22:30 03/30/25 22:29 03/03/25 16:54 75 MLS/HR Metoclopramide HCl (regLAN 10MG IV) 10 mg TIDAC IVP 03/02/25 17:00 04/01/25 16:59 03/03/25 16:50 10 MG Ondansetron HCl (zoFRAN 4MG INJ) 4 mg Q6H PRN IVP NAUSEA/VOMITING 02/28/25 22:30 03/30/25 22:29 03/02/25 13:48 4 MG Pantoprazole Sodium (PROTonix 40MG INJ) 40 mg DAILY IVP 03/01/25 09:00 03/31/25 08:59 03/03/25 09:19 40 MG Potassium Chloride 100 ml @ 50 mls/hr PROTOCOL IV 03/01/25 06:30 03/31/25 06:29 03/02/25 05:05 50 MLS/HR Sucralfate (Carafate) 1 gm ACHS PO 02/28/25 21:00 03/30/25 20:59 03/03/25 16:50 1 GM Diagnostics / Radiology: [COPY/PASTE HERE IF NO REPORTS PLEASE DELETE SECTION] Assessment: [Esophageal stricture s/p ERCP with stent placement GERD Hyperlipidemia ] Plan: [Case discussed with Dr. Jung Pureed diet Reglan 10mg IV tid Antiemetics prn Plan for disposition once patient is tolerates pureed foods. Patient is to keep follow-up appointment at [facility] in one week Please call with questions, concerns and change in clinical status Appreciate hospitalist's assistance in the patient's care. ] DIO RAMSEYP Mar 03, 2025 18:15
[2025-03-04] VITALS (7 sets, daily range): BP systolic 101–132; BP diastolic 70–93; PULSE 85–91; RESP 17–18; TEMP 97.4–98.6; O2SAT 93–94
[2025-03-04] MEDS: MAG/ALUM/SIMETH 30 ML UDCUP PO ONE (04:08)
[2025-03-04 04:09] LABS: NUCLEATED RED BLOOD CELLS 0.0 % (0.0-0.19); PLATELET COUNT (AUTO) 242.0 K/uL (130-400); RED BLOOD CELL COUNT(AUTO) 4.23 MIL/uL (4.50-6.20); RED CELL DISTRIBUTION WIDTH 13.2 % (11.0-15.5); WHITE BLOOD COUNT (AUTO) 12.2 K/uL (4.8-10.8)
[2025-03-04 04:16] LABS: CREATININE 0.7 mg/dL (0.5-1.3); GLOMERULAR FILTR. RATE CALC 93.0 mL/min (>90); GLUCOSE,RANDOM 99.0 mg/dL (70-105); SODIUM SERUM 135.0 mmol/L (136-145); UREA NITROGEN, BLOOD 17.0 mg/dL (7-18)
--- NOTE | 2025-03-04 13:05 | PN ---
[facility] PROGRESS NOTE Date of Service: Mar 04, 2025 Time of Service: 13:04 SUBJECTIVE: The patient was examined today. He reports no new complaints. No nausea, vomiting, or abdominal pain. 03/03 patient continues with nausea he is concerned about advancing diet. He reports weakness overall 03/04 patient has developed significant weakness. We will have Physical therapy work with the patient and evaluate for post acute care needs. REVIEW OF SYSTEMS CONSTITUTIONAL: Denies fevers, chills, or night sweats. No unintentional weight loss reported. NEUROLOGICAL: Denies headache, amaurosis fugax, motor weakness, sensory deficit, vertigo/spinning sensation, gait abnormalities, or tremors. ENT: No hearing loss, otalgia, otorrhea, rhinitis, rhinorrhea, hoarseness, or sore throat. CARDIOVASCULAR: Denies any exertional angina, dyspnea on exertion, orthopnea, paroxysmal nocturnal dyspnea, palpitations, life-threatening arrhythmias, claudication. PULMONARY: Denies any shortness of breath, cough, phlegm/sputum, hemoptysis, pleuritic chest pain. SLEEP: Denies morning headaches, daytime somnolence or napping. Denies difficulty falling asleep, staying asleep, waking from sleep. Denies knowledge of snoring. GASTROINTESTINAL: Denies any type of dysphagia to either liquids or solids. Denies nausea, vomiting, pyrosis, early satiety, abdominal pain, diarrhea, constipation, or changes in stool consistency or caliber. Denies coffee-ground emesis, hematemesis, hematochezia, or melanotic stools. GENITOURINARY: Denies frequency, urgency, nocturia, hematuria or incontinence (Storage/Irritative symptoms.) Low urinary stream, straining to void, urinary intermittency or hesitancy, splitting of the voiding stream, terminal dribbling. ENDOCRINOLOGIC: Denies polyuria, polydipsia, polyphagia or heat/cold intolerances. HEMATOLOGIC: Denies thrombophilia/previous clots, or coagulopathy/bleeding disorders. ONCOLOGIC: Denies personal history of malignancy. DERMATOLOGIC: Denies rashes or pruritus. PSYCHIATRIC: Denies any suicidal or homicidal ideation. Denies hallucinations. PHYSICAL EXAM GENERAL APPEARANCE: The patient is awake, alert, and oriented, in no acute cardiopulmonary distress. NEUROLOGICAL: Cranial nerves II-XII grossly intact. Motor is 5/5 in bilateral upper and lower extremities proximal to distal. No sensory deficits. HEENT: Face is symmetric. Pupils are equal and reactive. Extraocular movements are intact. NECK: Supple. No JVD. No thyromegaly. No submental, submandibular, pre- /postauricular, occipital or supraclavicular lymphadenopathy. CHEST: Normal chest expansion. No Telemetry. LUNGS: Absence of any rales, rhonchi or any wheezing. CARDIOVASCULAR: Regular. S1 and S2 normal. No appreciable rubs, murmurs or gallops. ABDOMEN: Soft, nontender, and nondistended. There is no rebound, voluntary guarding, or rigidity. : Deferred. No Elizalde. EXTREMITIES: Non-edematous and not cyanotic. No clubbing. Good capillary refill. SKIN: No skin breakdown. Vital Signs (last 8hr) Date Time Temp Pulse Resp B/P (MAP) Pulse Ox O2 Delivery O2 Flow Rate FiO2 03/04/25 12:00 97.5 85 17 101/70 94 Room Air 03/04/25 09:21 94 Room Air* 0 21 03/04/25 08:00 97.3 91 18 122/76 93 Room Air LABS: Laboratory: Test 03/04/25 12:41 03/04/25 03:38 Range/Units Potassium Level 3.2 L 3.5-5.1 mmol/L White Blood Count 12.2 H 4.8-10.8 K/uL Red Blood Count 4.23 L 4.50-6.20 MIL/uL Hemoglobin 14.3 # 14.0-18.0 g/dL Hematocrit 40.4 L 42-54 % Mean Corpuscular Volume 95.5 79-99 fL Mean Corpuscular Hemoglobin 33.8 H 27.0-33.0 pg Mean Corpuscular Hemoglobin Concent 35.4 32.0-36.0 g/dL Red Cell Distribution Width 13.2 11.0-15.5 % Platelet Count 242 130-400 K/uL Mean Platelet Volume 11.4 H 7.5-10.5 fL Nucleated Red Blood Cells 0.0 0.0-0.19 % Sodium Level 135 L 136-145 mmol/L Chloride Level 94 L 101-111 mmol/L Carbon Dioxide Level 32 21-32 mmol/L Blood Urea Nitrogen 17 7-18 mg/dL Creatinine 0.7 0.5-1.3 mg/dL Glomerular Filtration Rate Calc 93 >90 mL/min Random Glucose 99 70-105 mg/dL Total Calcium 8.5 8.5-10.1 mg/dL Current Medications Medications (Trade) Dose Ordered Sig/Dany Route PRN Reason Start Time Stop Time Status Last Admin Dose Admin Bisacodyl (DulcoLAX 5MG TAB) 5 mg DAILY PO 03/04/25 09:00 04/03/25 08:59 03/04/25 08:28 5 MG Docusate Sodium (COLace LIQUID 100MG/10ML) 100 mg BID PO 03/04/25 09:00 04/03/25 08:59 03/04/25 08:27 100 MG Lactated Ringer's 1,000 ml @ 75 mls/hr [id number] IV 02/28/25 22:30 03/30/25 22:29 03/04/25 08:26 75 MLS/HR Metoclopramide HCl (regLAN 10MG IV) 10 mg TIDAC IVP 03/02/25 17:00 04/01/25 16:59 03/04/25 11:20 10 MG Ondansetron HCl (zoFRAN 4MG INJ) 4 mg Q6H PRN IVP NAUSEA/VOMITING 02/28/25 22:30 03/30/25 22:29 03/02/25 13:48 4 MG Pantoprazole Sodium (PROTonix 40MG INJ) 40 mg DAILY IVP 03/01/25 09:00 03/31/25 08:59 03/04/25 08:27 40 MG Potassium Chloride 100 ml @ 50 mls/hr PROTOCOL IV 03/01/25 06:30 03/31/25 06:29 03/04/25 06:11 50 MLS/HR Sucralfate (Carafate) 1 gm ACHS PO 02/28/25 21:00 03/30/25 20:59 03/04/25 11:20 1 GM DIAGNOSTICS / RADIOLOGY: [ ] ASSESSMENT: [79-year-old male, status post EGD/ERCP with esophageal stent placement for high-grade esophageal stricture. Persistent nausea following procedure, cu rrently hemodynamically stable. No acute abdominal pain or evidence of complication at this time. ] Post-procedural nausea and vomiting Esophageal stricture, high-grade status post EGD/ERCP with esophageal stent placement. Post-procedural nausea persistent, requiring NPO. Hypokalemia (K 3.2 mmol/L) likely due to poor PO intake and nausea. Metabolic acidosis (CO2-19 mmol/L) mild, monitor for progression. Azotemia (BUN 24 mg/dL) possibly pre-renal from decreased PO intake. Mild hyperglycemia (Glucose 141 mg/dL) monitor. Stable hematology (Hgb 12.8 g/dL, Hct 38.4%) no acute anemia. Normal lipase (13 U/L) no evidence of acute pancreatitis. PLAN: Monitor off antibiotics for signs of infection Trend WBCs Follow-up cultures O2 nasal cannula as needed Monitor blood pressure Advance diet as tolerated as per GI GI prophylaxis with pantoprazole and sucralfate Continue Reglan, docusate Discontinue LR Trend a.m. BMP Replete electrolytes as necessary DVT prophylaxis with Lovenox Trend a.m. CBC Consult physical therapy to evaluate for post acute care needs Full code Case was discussed with patient's nurse at bedside Attention time greater than 30 minutes GENIA MORATAYA IV, MD Mar 04, 2025 13:04
[2025-03-04] MEDS: PoTASSium chl 10% ELIXIR 20MEQ 20 MEQ/15 ML UDCUP PO SCH (14:04)
[2025-03-05] VITALS: BP 146/91; PULSE 82; RESP 17; TEMP 98.1
[2025-03-05 04:06] VITALS: BP 126/89; PULSE 85; RESP 17; TEMP 98.3
[2025-03-05 04:39] LABS: NUCLEATED RED BLOOD CELLS 0.0 % (0.0-0.19); PLATELET COUNT (AUTO) 170.0 K/uL (130-400); RED BLOOD CELL COUNT(AUTO) 4.02 MIL/uL (4.50-6.20); RED CELL DISTRIBUTION WIDTH 13.4 % (11.0-15.5); WHITE BLOOD COUNT (AUTO) 10.3 K/uL (4.8-10.8)
[2025-03-05 04:54] LABS: CREATININE 0.6 mg/dL (0.5-1.3); GLOMERULAR FILTR. RATE CALC 98.0 mL/min (>90); GLUCOSE,RANDOM 101.0 mg/dL (70-105); SODIUM SERUM 133.0 mmol/L (136-145); UREA NITROGEN, BLOOD 16.0 mg/dL (7-18)
[2025-03-05 08:00] VITALS: BP 116/64; PULSE 91; RESP 18; TEMP 97.6
[2025-03-05 09:38] VITALS: O2SAT 94
[2025-03-05 12:00] VITALS: BP_SYST 103; BP_SYST 169; BP_DIAS 101; BP_DIAS 71; PULSE 62; PULSE 89; RESP 18; TEMP 97.6; TEMP 97.8
--- NOTE | 2025-03-05 14:32 | DS ---
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 Patient was seen ambulating within the hallways with physical therapy. Later patient was showering with supervision independently. Final GI Recommendations: Pureed diet Reglan 10mg IV tid Antiemetics prn Plan for disposition once patient is tolerates pureed foods. Patient is to keep follow-up appointment at [facility] in one week Patient reports he is ready to go home. He reports his brother we will drive his truck home. His sister is arriving this evening by plane. Patient reports he has got good social support in his ready to be discharged. Patient should follow up with PCP and GI. Medications as per med rec. Assessment/Plan: ASSESSMENT: [79-year-old male, status post EGD/ERCP with esophageal stent placement for high-grade esophageal stricture. Persistent nausea following procedure, currently hemodynamically stable. No acute abdominal pain or evidence of complication at this time. ] Post-procedural nausea and vomiting Esophageal stricture, high-grade status post EGD/ERCP with esophageal stent placement. Post-procedural nausea persistent, requiring NPO. Hypokalemia (K 3.2 mmol/L) likely due to poor PO intake and nausea. Metabolic acidosis (CO2-19 mmol/L) mild, monitor for progression. Azotemia (BUN 24 mg/dL) possibly pre-renal from decreased PO intake. Mild hyperglycemia (Glucose 141 mg/dL) monitor. Stable hematology (Hgb 12.8 g/dL, Hct 38.4%) no acute anemia. Normal lipase (13 U/L) no evidence of acute pancreatitis. PLAN: Monitor off antibiotics for signs of infection Trend WBCs Follow-up cultures O2 nasal cannula as needed Monitor blood pressure Advance diet as tolerated as per GI GI prophylaxis with pantoprazole and sucralfate Continue Reglan, docusate Discontinue LR Trend a.m. BMP Replete electrolytes as necessary DVT prophylaxis with Lovenox Trend a.m. CBC Consult physical therapy to evaluate for post acute care needs Full code Case was discussed with patient's nurse at bedside Attention time greater than 30 minutes Home Medications: Active Scripts Metoclopramide HCl (Reglan) 5 Mg Tab, 1 TAB PO TID for 30 Days, #90 TAB 0 Refills Prov:GENIA MORATAYA IV, MD 03/05/25 Pantoprazole Sodium (Pantoprazole Sodium) 40 Mg Tablet.dr, 1 TAB PO DAILY for 30 Days, #30 TAB 0 Refills Prov:GENIA MORATAYA IV, MD 03/05/25 Sucralfate (Sucralfate) 1 Gram/10 Ml Oral.susp, 1 GM PO ACHS for 30 Days, #1200 ML Prov:GENIA MORATAYA IV, MD 03/05/25 Reported Medications Docusate Sodium (Docusate Sodium) 100 Mg Capsule, 1 CAP PO DAILY for constipation for 30 Days, #30 CAP 0 Refills 02/28/25 Ferrous Sulfate (Ferrous Sulfate) 325 Mg (65 Mg Iron) Ectab, 1 TAB PO DAILY for 30 Days, #30 TAB 0 Refills 02/28/25 Cyanocobalamin (Vitamin B-12) (Vitamin B-12) 1,000 Mcg Capsule, 1 CAP PO DAILY for 30 Days, #30 CAP 0 Refills 02/28/25 Atorvastatin Calcium (Atorvastatin Calcium) 40 Mg Tablet, 1 TAB PO DAILY for 30 Days, #30 TAB 0 Refills 02/22/25 GENIA MORATAYA IV, MD Mar 05, 2025 14:32
[2025-03-05] MEDS ORDERED: SUCR1ORA15 PO (14:35)
[2025-03-05] MEDS ORDERED: METO5 PO (14:35)
[2025-03-05] MEDS ORDERED: PANT40TA54 PO (14:35)
--- NOTE | 2025-03-05 15:23 | NUR ---
PATIENT WAS EDUCATED ON THE IMPORTANCE TO F/U WITH APPTS AND TAKE NEW MEDICATIONS PRESCRIBED. PATIENT VERBALIZED UNDERSTANDING. IV WAS REMOVED WITHOUT ANY COMPLICATIONS. PT DENIED NEEDING FURTHER ASSISTANCE AND IS CURRENTLY WAITING FOR HIS RIDE IN THE ROOM.
[2025-03-05 16:00] VITALS: BP 147/88; PULSE 69; RESP 18; TEMP 97.6
--- NOTE | 2025-03-05 17:37 | NUR ---
CALLED IN MEDICATIONS TO THE [facility] PER PATIENTS FAMILKY REQUEST TO [facility].
== END 2025-03-05 19:33 | disposition home or self-care (01) | DRG 392 ==
LOC: ENDO 06:47 → DAH 06:47 → ENDO 06:48 → DAHIP 06:48 → OBSVTOIN 06:48 → 4AH 12:50
PROVIDERS: ADMIT Internal Medicine; ATTEND Internal Medicine
PROC: 0D758DZ Dilation of Esophagus with Intraluminal Device, Via Natural or Artificial Opening Endoscopic (ICD-10-PCS; principal; 2025-02-28)
PROC: 0DB38ZX Excision of Lower Esophagus, Via Natural or Artificial Opening Endoscopic, Diagnostic (ICD-10-PCS; 2025-02-28)
DX: K22.2 Esophageal obstruction (principal); E87.20 Acidosis, unspecified; E87.6 Hypokalemia; K21.9 Gastro-esophageal reflux disease without esophagitis; K22.70 Barrett's esophagus without dysplasia; E78.5 Hyperlipidemia, unspecified; Z85.51 Personal history of malignant neoplasm of bladder
CPT/HCPCS: 36415; 43239; 43266; 71046; 74360; 76000; 80048; 80053; 83690; 84132; 85025; 85027; 86900; 86901; G0378; J0330; J0696; J2003; J2405; J2470; J2704; J2765; J3010; J3480; J7030; J7120; J8540; A4657; A7002; J3490

== ENCOUNTER 2025-03-28 06:56 | Day surgery (SDC) | payer OTHER ==
[2025-03-28] VITALS (13 sets, daily range): BP systolic 103–120; BP diastolic 63–75; PULSE 63–81; RESP 14–17; TEMP 97.1–98.1
[~2025-03-28] VITALS: Ht 162.6 cm; Wt 48.1 kg
[~2025-03-28 06:56] MED LIST changes: +CYAN-35 PO; +DOCU100C33 PO; +FERS325 PO; +METO5 PO; +PANT40TA54 PO; +SUCR1ORA15 PO
[2025-03-28] MEDS: 0.9%NACL 1000ML 1,000 ML IV ONE (08:32)
[2025-03-28] MEDS ORDERED: LIDOCAINE HCL 1% 20 ML VIAL ONE (10:08)
== END 2025-03-28 11:49 | disposition home or self-care (01) ==
LOC: ENDO 06:56 → DAH 06:56 → ENDO 11:49
PROVIDERS: ATTEND Internal Medicine Gastroenterology
DX: K22.2 Esophageal obstruction (principal); K21.00 Gastro-esophageal reflux disease with esophagitis, without bleeding; K22.70 Barrett's esophagus without dysplasia; K44.9 Diaphragmatic hernia without obstruction or gangrene; R93.3 Abnormal findings on diagnostic imaging of other parts of digestive tract; T18.198A Other foreign object in esophagus causing other injury, initial encounter; C67.9 Malignant neoplasm of bladder, unspecified; Z79.899 Other long term (current) drug therapy; Z98.890 Other specified postprocedural states; Z97.8 Presence of other specified devices; Y82.8 Other medical devices associated with adverse incidents
CPT/HCPCS: 43239; 43247; J2704; J7030; A4215; A4620; A4657; A7002; J3490